=== PATIENT | female | born 1985 | race African-American/Black ===

== ENCOUNTER 2020-12-23 00:10 | Emergency (ER) | payer SELFPAY ==
[2020-12-23] MEDS ORDERED: traMADol HCl 50 MG TAB ONE (00:37)
[2020-12-23] MEDS ORDERED: Ibuprofen 200 MG TAB ONE (00:38)
[2020-12-23] MEDS ORDERED: Amoxicillin/Potassium Clav 875 MG TAB ONE (00:38)
== END 2020-12-23 00:50 | disposition home or self-care (01) ==
LOC: NAV ERS 00:10
DX: K03.81 Cracked tooth (principal); F17.210 Nicotine dependence, cigarettes, uncomplicated
CPT/HCPCS: 99282